=== PATIENT | male | born 1935 | race Caucasian/White ===

== ENCOUNTER → 2017-01-19 | Outpatient (CLI) | payer OTHER | LOC: BHFA 14:00 | PROVIDERS: ATTEND Internal Medicine Cardiovascular Disease | DX: R42 Dizziness and giddiness (principal) ==

== ENCOUNTER → 2017-02-04 | Outpatient (CLI) | payer OTHER | LOC: BHFA 10:00 | PROVIDERS: ATTEND Internal Medicine Cardiovascular Disease | DX: R42 Dizziness and giddiness (principal); E78.5 Hyperlipidemia, unspecified ==

== ENCOUNTER 2017-03-01 07:36 | Day surgery (SDC) | payer OTHER ==
[2017-03-01] MEDS ORDERED: FAMOTIDINE 20 MG TAB PO ONE (07:38)
[2017-03-01] MEDS ORDERED: NS 1,000 ML IV ONE (07:38)
[2017-03-01] MEDS ORDERED: DIAZEPAM 5 MG TAB PO ONE (07:38)
[2017-03-01] MEDS ORDERED: ASPIRIN EC 325 MG TAB PO ONE ×2 (07:38→07:51)
[2017-03-01] MEDS ORDERED: diphenhydrAMINE 25 MG CAP PO ONE ×2 (07:38→07:51)
[2017-03-01] MEDS ORDERED: FAMOTIDINE 20 MG TAB ONE (07:51)
[2017-03-01] MEDS ORDERED: DIAZEPAM 5 MG TAB ONE (07:51)
--- NOTE | 2017-03-01 08:02 | CPEKG ---
Heart Rate: 68 RR Interval: 882 P-R Interval: 172 QRSD Interval: 98 QT Interval: 404 QTC Interval: 430 P Frederick: 70 QRS Frederick: 40 T Wave Frederick: 57 EKG Severity - NORMAL ECG - EKG Impression: SINUS RHYTHM Electronically Signed By: Yinka Amanda 02-Mar-2017 12:04:55
[2017-03-01 08:23] LABS: % IMMATURE GRANULYOCYTES 0.2 % (0.0-1.1); ABSOLUTE IMMATURE GRANULOCYTES 0.01 10^3/uL (0.00-0.10); ADD DIFF? NO; ADD MORPH? NO; ADD SCAN? NO; ATYPICAL LYMPHOCYTE FLAG 30 (0-99); FRAGMENT RBC FLAG 0 (0-99); HEMATOCRIT 42.5 % (40.0-51.0); HEMOGLOBIN 14.5 g/dL (13.7-17.5); LEFT SHIFT FLG 0 (0-99); LIPEMIA HEMOLYSIS FLAG 90 (0-99); MEAN CELL HEMOGLOBIN 30.4 pg (27.9-34.1); MEAN CELL HEMOGLOBIN CONCENTR. 34.1 g/dL (32.4-36.7); MEAN CELL VOLUME 89.1 fL (81.5-99.8); MEAN PLATELET VOLUME 10.8 fL (8.7-11.7); PLATELET CLUMPS FLAG 0 (0-99); PLATELET COUNT 134 10^3/uL (150-400); RED BLOOD CELL COUNT 4.77 10^6/uL (4.40-6.38); RED CELL DISTRIBUTION WIDTH 12.2 % (11.5-15.2)
[2017-03-01 08:32] LABS: INR 1.05 (0.83-1.16); PROTIME(PATIENT) 13.6 SEC (12.0-15.0)
[2017-03-01 08:39] LABS: ANION GAP 11 mEq/L (8-16); CALCIUM 9.5 mg/dL (8.5-10.4); CARBON DIOXIDE 25 mEq/l (22-31); CHLORIDE 107 mEq/L (97-110); CHOLESTEROL 141 mg/dL (140-220); CHOLESTEROL/HDL RATIO 3.53 RATIO (1.00-4.97); CREATININE 0.9 mg/dL (0.7-1.3); GLOMERULAR FILTRATION RATE > 60; GLUCOSE 83 mg/dL (70-100); HIGH DENSITY LIPOPROTEIN 40 mg/dL (40-65); LDL/HDL RATIO 2.25 RATIO (1.00-3.64); LOW DENSITY LIPOPROTEIN 90 mg/dL (80-100); NON-HIGH DENSITY LIPOPROTEIN 101 mg/dL (90-129); POTASSIUM 4.2 mEq/L (3.5-5.2); SODIUM 143 mEq/L (134-144); TRIGLYCERIDE 55 mg/dL (40-150); VERY LOW DENSITY LIPOPROTEINS 11 mg/dL (8-25)
[2017-03-01] MEDS ORDERED: LIDOCAINE 1% 300 MG/30 ML SDV ONE (08:49)
[2017-03-01] MEDS ORDERED: fentaNYL 100 MCG/2 ML INJ ONE (08:49)
[2017-03-01] MEDS ORDERED: HEPARIN 10,000 UNIT/10 ML MDV ONE (08:50)
[2017-03-01] MEDS ORDERED: MIDAZOLAM 2 MG/2 ML VIAL ONE (08:50)
[2017-03-01] MEDS ORDERED: IOPAMIDOL (ISOVUE-370) 150 ML BTL IV ONE (08:50)
[2017-03-01] MEDS ORDERED: VERAPAMIL 5 MG/2 ML VIAL ONE (08:50)
--- NOTE | 2017-03-01 10:44 | CPIP ---
[f rep st] INVASIVE CARDIAC PROCEDURE DATE OF PROCEDURE: 03/01/2017 PROCEDURE PERFORMED: 1. Selective coronary angiography. 2. Left heart catheterization. 3. Left ventriculogram. 4. TR band arteriotomy repair. This was a right radial approach. COMPLICATIONS: None. INDICATIONS/APPROPRIATE USE CRITERIA: A patient with resting angina with CCS Class 4 symptoms of ch est discomfort, and an indeterminate risk stress test considered intermediate because of major EKG c hanges with exercise but homogeneous pattern of tracer activity on the MPI study. PROCEDURE IN DETAIL: After informed consent was obtained and n.p.o. status was confirmed, the regio n of the right wrist was cleaned, prepped, and draped in sterile fashion. A plethysmography trace a ssist analysis test was performed documenting dual arterial supply to the right index finger. The p atient then underwent the previously mentioned diagnostic procedures with use of JL3.5 and JR4 diagn ostic catheters. A 5-Finnish pigtail catheter was also utilized. Standard over wire exchange techni que was utilized for all catheter exchanges. The right coronary artery is dominant giving rise to the posterior descending as well as several sma ll posterolateral ventricular branches. No significant flow-limiting obstruction, dissection, or th rombus was identified. There were luminal irregularities consistent with underlying atherosclerosis . Maximal luminal stenosis was noted in the mid LAD with approximately 10% stenosis. The left main coronary is approximately 8 mm in size and trifurcates into an LAD, ramus intermedius, and circumfl ex system. Circumflex vessel is 2.5 mm in size proximally giving rise to a single important obtuse marginal branch. There was CJ-3 flow and no evidence of flow-limiting obstruction, dissection, or thrombus. The ramus vessel is small, approximately 2.5 mm in size, and is free of flow-limiting di sease. The LAD arises in its usual location and gives rise to an early diagonal branch, which gives all subsequent anterolateral branches of importance. The diagonal vessel is 2 mm in size. The LAD proximally is quite small after its initial course and is approximately 2.5 mm in size. There are diffuse luminal irregularities within the LAD consistent with underlying atherosclerosis. Maximal l uminal stenosis is approximately 20%. There was excellent and CJ-3 flow to the distal apex withou t evidence of flow-limiting obstruction. The patient underwent left heart catheterization demonstrating elevated left ventricular end-diastol ic pressure measured at 17 mmHg. The patient underwent left ventriculogram in the CHAPMAN projection, d emonstrating preserved left ventricular systolic function. Ejection fraction is 60%. No resting se gmental wall motion abnormalities are identified. There is no evidence of significant mitral regurg itation. The visualized portion of the thoracic aorta reveals 3 sinuses of Valsalva which is most c onsistent with a trileaflet aortic valve. The proximal portion of the aorta is free of kehinde dissec tion or aneurysm. There is evidence of luminal irregularity in the descending portion of the thorac ic aorta consistent with underlying atherosclerosis. SUMMARY OF FINDINGS: [id number] coronary artery disease and atherosclerosis are present. Th e patient should be treated to achieve a non-HDL cholesterol of less than 100 mg/dL. Ideally, the L DL should also be less than 100, triglycerides less than 135, and HDL above 55 and as high as possib le. The patient may need anti-anginals in the event that he has microvascular circulatory problems or ongoing chest discomfort that is consistent with angina. He does not have flow-limiting coronary disease that would benefit from bypass surgery or stenting at this time. /[id number]/MODL
== END 2017-03-01 12:45 | disposition home or self-care (01) ==
LOC: FCATH 07:36
PROVIDERS: ATTEND Internal Medicine Cardiovascular Disease
DX: I25.119 Atherosclerotic heart disease of native coronary artery with unspecified angina pectoris (principal); E78.5 Hyperlipidemia, unspecified; J44.9 Chronic obstructive pulmonary disease, unspecified; M54.12 Radiculopathy, cervical region
CPT/HCPCS: 93005; 93458; C1769; J1644; J2250; J3010; Q9967

== ENCOUNTER → 2017-12-30 | Outpatient (CLI) | payer OTHER | LOC: BHLMT 14:00 | PROVIDERS: ATTEND Internal Medicine Cardiovascular Disease | DX: R07.9 Chest pain, unspecified (principal); I25.10 Atherosclerotic heart disease of native coronary artery without angina pectoris; E78.5 Hyperlipidemia, unspecified; J44.9 Chronic obstructive pulmonary disease, unspecified | CPT/HCPCS: 93005-PO ==

== ENCOUNTER → 2018-07-13 | Outpatient (CLI) | payer OTHER | LOC: BHFA 15:00 | PROVIDERS: ATTEND Nurse Practitioner Family | DX: Z01.810 Encounter for preprocedural cardiovascular examination (principal); E78.5 Hyperlipidemia, unspecified ==

== ENCOUNTER → 2018-08-08 | Outpatient (CLI) | payer OTHER | LOC: FIMAGING 10:27 | PROVIDERS: ATTEND Orthopaedic Surgery | DX: M17.11 Unilateral primary osteoarthritis, right knee (principal) ==

== ENCOUNTER 2018-08-26 11:00 | Inpatient (IN) | payer OTHER ==
--- NOTE | 2018-08-26 07:13 | PDHPUP ---
History & Physical Update H&P update statement: This history and physical update is based on an assessment of the patient which was completed after admission or registration (within 24 hours), but prior to the surgery/procedure. H&P update: H&P reviewed & patient examined, no change in patient's condition since H&P completed
[~2018-08-26 11:00] MED LIST: ROPIVACAINE 0.2% 80 MG, EPINEPHrine 0.2 MG, KETOROLAC TROMETHAMINE 30 MG in SYRINGE 0 ML IU ONE; TRANEXAMIC ACID 3,000 MG in NS (SYRINGE) 50 ML IRR ONE; TRANEXAMIC ACID 3,000 MG/50 ML BAG IRR ONE
[2018-08-26] MEDS ORDERED: ACETAMINOPHEN 325 MG TAB PO ONE (12:20)
[2018-08-26] MEDS ORDERED: ceFAZolin 2 GM/DEXTROSE 100 ML IV ONE (12:20)
[2018-08-26] MEDS ORDERED: DEXAMETHASONE 4 MG/ML VIAL IVP ONE (12:20)
[2018-08-26] MEDS ORDERED: FAMOTIDINE 20 MG TAB PO ONE (12:20)
[2018-08-26] MEDS ORDERED: LR 1,000 ML IV ONE (12:26)
[2018-08-26] MEDS ORDERED: DEXAMETHASONE 4 MG/ML VIAL ONE (12:37)
[2018-08-26] MEDS ORDERED: FAMOTIDINE 20 MG TAB ONE (12:38)
--- NOTE | 2018-08-26 13:46 | PDANEPAE ---
ANE History of Present Illness OA here for R TKA ANE Past Medical History - Cardiovascular History Hx Hypertension: No Hx Arrhythmias: No Hx Chest Pain: No Hx Coronary Artery / Peripheral Vascular Disease: Yes Hx CHF / Valvular Disease: No Hx Palpitations: No - Pulmonary History Hx COPD: No Hx Asthma/Reactive Airway Disease: No Hx Recent Upper Respiratory Infection: No Hx Oxygen in Use at Home: No Hx Sleep Apnea: No Sleep Apnea Screening Result - Last Documented: Negative - Neurologic History Hx Cerebrovascular Accident: No Hx Seizures: No Hx Dementia: No - Endocrine History Hx Diabetes: No - Renal History Hx Renal Disorders: No - Liver History Hx Hepatic Disorders: No - Neurological & Psychiatric Hx Hx Neurological and Psychiatric Disorders: No - Cancer History Hx Cancer: No - Congenital Disorder History Hx Congenital Disorders: No - GI History Hx Gastrointestinal Disorders: Yes Gastrointestinal History Comment: GERD,CONSTIPATION - Other Health History Other Health History: CERVICAL DISC DX. OSTEOARTHRITIS - Chronic Pain History Chronic Pain: Yes (BOTH KNEE'S) - Surgical History Prior Surgeries: COLONOSCOPY. TYRELL ING HERNIA. RT KNEE SCOPE. TONSILLECTOMY ANE Review of Systems Review of Systems: - Exercise capacity METS (RN): 4 METS ANE Patient History - Allergies Allergies/Adverse Reactions: No Known Allergies Allergy (Verified 08/26/18 12:45) - Home Medications Home medications: home medication list seen and reviewed Home Medications: Aspirin [Aspirin 81mg (*)] 81 mg PO HS 03/01/17 [Last Taken 08/19/18] Atorvastatin Calcium [Lipitor 10 mg (*)] 10 mg PO HS 03/01/17 [Last Taken ] Omeprazole 10 mg PO DAILY 03/01/17 [Last Taken 08/25/18] Herbals/Supplements -Info Only 1 ea PO DAILY 08/15/18 [Last Taken 08/19/18] Polyethylene Glycol 3350 [Miralax 17 gm (*)] 17 gm PO DAILY 08/15/18 [Last Taken 08/25/18] - NPO status NPO Status: no food or drink >8 hours NPO Since - Liquids (Date): 08/26/18 NPO Since - Liquids (Time): 09:30 NPO Since - Solids (Date): 08/25/18 NPO Since - Solids (Time): 23:00 - Anes Hx Anes Hx: no prior problems - Smoking Hx Smoking Status: Never smoked - Alcohol Use Alcohol Use: None - Family Anes Hx Family Anes Hx: none ANE Labs/Vital Signs - Vital Signs Blood Pressure: 149/87 Heart Rate: 72 Respiratory Rate: 20 O2 Sat (%): 98 Height: 172.72 cm Weight: 68.039 kg ANE Physical Exam - Airway Neck exam: FROM Mallampati Score: Class 2 Mouth exam: normal dental/mouth exam - Pulmonary Pulmonary: no respiratory distress, clear to auscultation - Cardiovascular Cardiovascular: regular rate and rhythym, no murmur, rub, or gallop - ASA Status ASA Status: II ANE Anesthesia Plan Anesthesia Plan: GA with mask, spinal Regional Anesthesia: single shot NB, adductor canal FNB Total IV Anesthesia: Yes
[2018-08-26] MEDS ORDERED: MIDAZOLAM 2 MG/2 ML VIAL IVP ONE (13:55)
[2018-08-26] MEDS ORDERED: MIDAZOLAM 2 MG/2 ML VIAL ONE (13:59)
[2018-08-26] MEDS ORDERED: PROPOFOL/EMULSION 500 MG/50 ML BOTTLE IV ONE (14:05)
[2018-08-26] MEDS ORDERED: diphenhydrAMINE 25 MG CAP PO PRN (14:35)
[2018-08-26] MEDS ORDERED: oxyCODONE IR 5 MG TAB PO PRN ×2 (14:35→15:40)
[2018-08-26] MEDS ORDERED: BISACODYL 10 MG SUPP PR PRN (14:35)
[2018-08-26] MEDS ORDERED: PROMETHAZINE HCL 25 MG/ML INJ IVP PRN (14:35)
[2018-08-26] MEDS ORDERED: POLYETHYLENE GLYCOL 3350 17 GM PKT PO PRN (14:35)
[2018-08-26] MEDS ORDERED: MAGNESIUM HYDROXIDE 30 ML UDCUP PO PRN (14:35)
[2018-08-26] MEDS ORDERED: DIPHENOXYLATE/ATROPINE LOMOTIL 1 TAB PO PRN (14:35)
[2018-08-26] MEDS ORDERED: PROMETHAZINE HCL 25 MG SUPPR PR PRN (14:35)
[2018-08-26] MEDS ORDERED: ONDANSETRON DISINTEGRATING 4 MG TAB PO PRN (14:35)
[2018-08-26] MEDS ORDERED: LACTULOSE 20 GM/30 ML UDCUP PO PRN (14:35)
[2018-08-26] MEDS ORDERED: CYCLOBENZAPRINE 10 MG TAB PO PRN (14:35)
[2018-08-26] MEDS ORDERED: ONDANSETRON 4 MG/2 ML VIAL IVP PRN ×2 (14:35→15:40)
[2018-08-26] MEDS ORDERED: METOCLOPRAMIDE 10 MG/2 ML VIAL IVP PRN (14:35)
[2018-08-26] MEDS ORDERED: TEMAZEPAM 15 MG CAP PO PRN (14:35)
--- NOTE | 2018-08-26 14:54 | PDMN ---
Medical Necessity Medical [place] [facility] [place], Total: 82 yo s/p R TKA, meets IP criteria for advanced age, HTN, CAD and tele monitoring per cardiology.
[2018-08-26] MEDS ORDERED: LR 1,000 ML IV SCH (15:00)
[2018-08-26] MEDS ORDERED: DIAZEPAM 5 MG/ML 1 ML SYR IVP PRN (15:40)
[2018-08-26] MEDS ORDERED: NALOXONE HCL 0.4 MG/ML INJ IVP PRN (15:40)
[2018-08-26] MEDS ORDERED: HYDROmorphONE/DILAUDID 2 MG/ML INJ IVP PRN (15:40)
[2018-08-26] MEDS ORDERED: fentaNYL 100 MCG/2 ML INJ IVP PRN (15:40)
[2018-08-26] MEDS ORDERED: HYDROCODONE/APAP 5/325 TAB PO PRN (15:40)
[2018-08-26] MEDS ORDERED: ACETAMINOPHEN 500 MG TAB PO PRN (15:40)
--- NOTE | 2018-08-26 15:42 | POSTANESTH ---
Post Anesthetic Evaluation Cardiovascular Status: Normal, Stable, Similar to Pre-Op Cond Respiratory Status: Normal, Stable, Similar to Pre-op Cond. Level of Consciousness/Mental Status: Can Participate in Eval, Alert and Oriented Pain Control: Adequate, Prn Tx Ordered Nausea/Vomiting Control: Adequate, Prn Tx Ordered Complications Possibly Related to Anesthesia: None Noted
--- NOTE | 2018-08-26 15:56 | POSTOPPROG ---
Post Op Note Date of Operation: 08/26/18 Surgeon: Maikel Reyes Extension Clerk: Lashell Reyes PA-C Anesthesiologist: Dr. Crenshaw Anesthesia: Spinal, Other (Specify) (adductor canal block) Pre-op Diagnosis: right knee OA Post-op Diagnosis: same Indication: Right knee pain Procedure: R TKA robot assisted, sensor assisted Findings: severe knee OA Inf/Abcess present in the surg proc area at time of surgery?: No EBL: 50-100
[2018-08-26] MEDS: SENNOSIDES/DOCUSATE SODIUM TAB PO SCH (19:58)
[2018-08-26] MEDS: ASPIRIN 81 MG CHEWABLE TAB PO SCH (19:58)
[2018-08-26] MEDS: ACETAMINOPHEN 325 MG TAB PO SCH ×2 (19:58→23:58)
[2018-08-26] MEDS: FAMOTIDINE 20 MG TAB PO SCH (19:58)
[2018-08-26] MEDS ORDERED: ATORVASTATIN CALCIUM 10 MG TAB PO SCH (21:00)
[2018-08-26] MEDS: ceFAZolin 2 GM/DEXTROSE 100 ML IV SCH (22:35)
--- NOTE | 2018-08-27 03:16 | GOP ---
DATE OF OPERATION: 08/26/2018 SURGEON: Liz Reyes MD BATCH ATTENDANT: TABITHA Hensley. ANESTHESIA: Spinal. PREOPERATIVE DIAGNOSIS: Right knee osteoarthritis. POSTOPERATIVE DIAGNOSIS: Right knee osteoarthritis. PROCEDURE PERFORMED: Right total knee arthroplasty with computer navigation, robotic assist. FINDINGS: ESTIMATED BLOOD LOSS: 30 cc. INDICATIONS: The patient is an 82-year-old male with severe and progressive pain and deformity of th e right knee unresponsive to conservative care. The risks and benefits of surgical intervention were explained in detail. DESCRIPTION OF PROCEDURE: The patient was brought to the operative room and placed on the table in t he supine position. Spinal anesthesia was induced without difficulty. A pneumatic tourniquet was appl ied about the right proximal thigh, and the leg was prepped and draped in a sterile fashion. The leg borrego was applied. After exsanguination by elevation the tourniquet was inflated to 250 mmHg. Incision was made anterior medial from the tibial tuberosity to a point 2 cm proximal to the superior pole of the patella. Medial parapatellar arthrotomy was carried out from the superior pole of the pa tella and posteriorly in line with the fibers of the Type II VMO. The medial collateral ligament was elevated and the infrapatellar fat pad was resected. Severe medial and patellofemoral osteoarthritis . The patella was everted and the articular surface was excised. A 35 mm patellar button was placed. Attention was turned first to the distal aspect of the femur. After exposure of the femur, 2 half pi ns were placed for fixation of the femoral array. In a similar fashion, 2 pins were placed anteromed ial on the tibia for fixation of the tibial array. External land marking and registration of the hip center was performed without difficulty. Internal femoral and tibial registration was carried out w ithout difficulty and the femoral and tibial checkpoints were placed and verified for accuracy. Attention was turned to the femur. The foot print for the size 5 femoral component was cut with the saw using the [employer] robotic system and verified for accuracy against the CT based plan. In a similar f ashion, the saw was used to cut the footprint for the size 5 tibial component using the [employer] system an d verified for accuracy against the CT based plan. The tibial articular surface was excised without d ifficulty, followed by the intercondylar box cut. The knee was extended and the remnants of the medial and lateral meniscus were excised. The posterior capsule was injected with ropivacaine, epinephrine and Toradol. A size 5 tibial tray was positioned . Trial reduction was then carried out. There was excellent range of motion, alignment, and stability using the 5 x 9 mm polyethylene. All trials were then removed. The joint was thoroughly irrigated and carefully dried. The press-fit c omponents were implanted. The permanent 5 x 9 mm polyethylene was placed without difficulty. The tourniquet was deflated and all bleeders were coagulated. The wound was thoroughly irrigated and closed using interrupted sutures of 2-0 Vicryl for the joint capsule. The subcu was closed with 3-0 V icryl and the skin with 4-0 Monocryl. Dermabond and Steri-Strips were applied followed by a compress cristhian dressing. The patient was then moved from the operating room to the recovery room in good conditi on, having tolerated the procedure well. /[id number]/MODL
[2018-08-27] MEDS: ACETAMINOPHEN 325 MG TAB PO SCH ×2 (05:07→13:15)
[2018-08-27] MEDS: ceFAZolin 2 GM/DEXTROSE 100 ML IV SCH (05:07)
[2018-08-27] MEDS: ASPIRIN 81 MG CHEWABLE TAB PO SCH (09:57)
[2018-08-27] MEDS: FAMOTIDINE 20 MG TAB PO SCH (09:57)
[2018-08-27] MEDS: SENNOSIDES/DOCUSATE SODIUM TAB PO SCH (09:58)
--- NOTE | 2018-08-27 10:49 | SOAPPROG ---
SOAP Progress Note Assessment/Plan: Assessment: Patient is doing well POD 1 s/p R TKA Pain management: pain is well controlled on oral pain meds. VTE ppx: recommend aspirin daily for 3 weeks, cont PRIMO and SCDs D/c planning:patient has done much better than anticipated. Patient is stable, BP stable, pain well controlled and patient is eager for discharge to home. May d/c to home today pending release from PT postop urinary retention: straight cath'd yesterday, resolved today. Plan: 08/27/18 10:48 Subjective: patient is doing well, eager for discharge to home, denies SOB, chest pain and N /V Objective: Vital Signs Temp Pulse Resp BP Pulse Ox 36.5 C 66 18 133/78 H 96 08/27/18 08:00 08/27/18 08:00 08/27/18 08:00 08/27/18 08:00 08/27/18 08:00 Laboratory Results 08/27/18 04:40 08/27/18 04:40 08/26/18 08/27/18 08/28/18 05:59 05:59 05:59 Intake Total 1150 Output Total 0 Balance -910 RLE: incision dressing is clean and dry, NVI, +pf/df ICD10 Worksheet Patient Problems: Problems Problem Status Onset Primary localized osteoarthritis of right knee Acute
--- NOTE | 2018-08-27 11:28 | GDS ---
ADMISSION DIAGNOSIS: Right knee osteoarthritis. DISCHARGE DIAGNOSIS: Right knee osteoarthritis. PROCEDURE: Right total knee arthroplasty, robotic-assisted and sensory-assisted. VTE PROPHYLAXIS: Recommend aspirin 81 mg twice daily for 4 weeks. BRIEF DESCRIPTION OF HOSPITAL STAY: Patient was admitted for an elective joint arthroplasty. The pa disha tolerated the procedure well and has passed physical therapy. The patient was given appropriat e antibiotic prophylaxis and venous thromboembolism prophylaxis. The patient's pain was well control led on oral pain medication, patient was holding down food, and had urinated. Decision was made to d ischarge the patient. The patient was given post-operative prescriptions pre-operatively. PLAN: To follow up with Dr. Reyes at [facility] in 2 to 3 weeks. The patient has done much better than anticipated, okay for discharge to home. Patient to schedule a t Dr. Reyes office on September 15. /[id number]/MODL
[2018-08-27 11:51] VITALS: BP 119/67
== END 2018-08-27 13:50 | disposition home or self-care (01) | DRG 470 ==
LOC: F3N 12:09
PROVIDERS: ADMIT Orthopaedic Surgery; ATTEND Orthopaedic Surgery
DX: M17.11 Unilateral primary osteoarthritis, right knee (principal); M19.011 Primary osteoarthritis, right shoulder; R33.9 Retention of urine, unspecified
CPT/HCPCS: 97110-GP; 97116-GP; 97161-GP; G8978-GP-CJ; G8979-GP-CJ; G8980-GP-CJ; J0171; J0690; J1100; J1885; J2250; J2704; J2795